=== PATIENT | male | born 1975 | race Caucasian/White ===

== ENCOUNTER 2021-01-21 11:08 | Emergency (ER) | payer MEDICAID ==
[~2021-01-21] VITALS: Ht 172.7 cm; Wt 81.8 kg
[2021-01-21 11:09] VITALS: BP 125/83
[2021-01-21 11:53] LABS: COLOR,URINE YELLOW (Yellow); UA COLLECTION TYPE OTHER
[2021-01-21 11:54] LABS: CLARITY,URINE CLOUDY (Clear); GLUCOSE, URINE NEGATIVE (Neg); KETONES,URINE NEGATIVE (Neg); NITRITES, URINE NEGATIVE (Neg); OCCULT BLOOD,URINE LARGE (Neg); PH,URINE 7.5 (4.8-8.0); PROTEIN,URINE NEGATIVE (Neg)
[2021-01-21 11:55] LABS: LEUKOCYTE ESTERASE ,URINE TRACE (Neg)
[2021-01-21 12:07] LABS: FINE GRANULAR CAST 0-3 /LPF (NEGATIVE)
[2021-01-21 12:08] LABS: MUCUS STRANDS MANY /LPF (Neg); SQUAMOUS EPITHELIAL CELL,UR NONE SEEN /LPF (FEW)
[2021-01-21 12:12] LABS: RBC,URINE TNTC /HPF (0-2); WBC,URINE 20-30 /HPF (0-4)
[2021-01-21 12:15] LABS: CAL OXALATE CRYSTALS 3+ /HPF (NEGATIVE); YEAST MODERATE /HPF (NEGATIVE)
[2021-01-21 12:17] LABS: BACTERIA,URINE 2+ /HPF (Neg)
[2021-01-21] MEDS ORDERED: sulfamethoxazole/trimethoprim DS (800/160mg) tablet PO ONE (12:35)
[2021-01-21] MEDS ORDERED: LIDOcaine 2% 10ml TOPICAL JELLY (Urojet) TP ONE (12:35)
[2021-01-21] MEDS ORDERED: HYDROcodone/acetaminophen 5mg/325mg tablet PO ONE (12:35)
[2021-01-21] MEDS ORDERED: ondansetron 4mg rapidly disintigrating tab PO ONE (12:35)
[2021-01-21] MEDS ORDERED: opium/belladonna alkaloids No. 15A 30mg rectal suppository RC PRN (14:35)
[2021-01-21] MEDS ORDERED: SULF1TAB45 PO (14:37)
[2021-01-21] MEDS ORDERED: OXYB5TAB16 PO (14:37)
== END 2021-01-21 15:21 | disposition home or self-care (01) ==
LOC: ER 11:08
DX: T83.9XXS Unspecified complication of genitourinary prosthetic device, implant and graft, sequela (principal); N39.0 Urinary tract infection, site not specified
CPT/HCPCS: 51702; 81001; 87077; 87088; 87186; 99284

== ENCOUNTER 2021-01-31 10:39 | Emergency (ER) | payer MEDICAID ==
[~2021-01-31] VITALS: Ht 172.7 cm; Wt 90.0 kg
[~2021-01-31 10:39] MED LIST: OXYB5TAB16 PO; SULF1TAB45 PO
[2021-01-31 11:00] VITALS: BP 113/59
== END 2021-01-31 11:06 | disposition home or self-care (01) ==
LOC: ER 10:40
DX: Z13.89 Encounter for screening for other disorder (principal); Z98.890 Other specified postprocedural states; Z79.2 Long term (current) use of antibiotics; Z79.899 Other long term (current) drug therapy
CPT/HCPCS: 99281

== ENCOUNTER → 2021-02-20 | Outpatient (CLI) | payer MEDICAID ==
[~2021-02-20] MED LIST changes: -SULF1TAB45 PO
== END | disposition home or self-care (01) ==
LOC: RAD 12:21
PROVIDERS: ATTEND Physician Assistant
DX: G40.909 Epilepsy, unspecified, not intractable, without status epilepticus (principal)
CPT/HCPCS: 95819

== ENCOUNTER 2021-04-24 05:16 | Emergency (ER) | payer MEDICAID ==
[~2021-04-24] VITALS: Ht 172.7 cm; Wt 90.9 kg
--- NOTE | 2021-04-24 05:45 | NUR ---
Pt was concerned about decreased urinary out put. Bladder scan revealed 117 ml
[2021-04-24] MEDS ORDERED: normal saline 1000ML IV soln IVB ONE (06:25)
[2021-04-24] MEDS ORDERED: methylnaltrexone br 12mg/0.6ml inj***SubQ only SQ ONE (06:25)
[2021-04-24] MEDS ORDERED: ketorolac trometh. 30mg/ml inj. IV ONE (06:25)
[2021-04-24] MEDS ORDERED: bisacodyl 5mg tablet.DR PO ONE (06:25)
[2021-04-24 07:45] VITALS: BP 113/87
[2021-04-24 07:54] LABS: BASOPHILS % (AUTO) 0.3 % (0-1); EOSINOPHILS % (AUTO) 0.4 % (0-6); HEMATOCRIT 35.2 % (42.0-52.0); HEMOGLOBIN 11.9 g/dl (14.0-17.9); LYMPHOCYTES % (AUTO) 11.8 % (21-51); MEAN CORPUSCULAR HEMOGLOBIN 31.1 PG (27.0-31.0); MEAN CORPUSCULAR HGB CONC 33.9 g/dL (33.0-36.5); MEAN CORPUSCULAR VOLUME 91.9 FL (78-98); MEAN PLATELET VOLUME 9.6 FL (7.4-10.4); MONOCYTES # (AUTO) 0.9 X10'3 (0-0.9); MONOCYTES % (AUTO) 9.9 % (2-12); NEUTROPHILS # (AUTO) 6.8 X10'3 (1.8-7.7); NEUTROPHILS % (AUTO) 77.6 % (42-75); RED BLOOD COUNT 3.83 X10'6 (4.70-6.10); RED CELL DISTRIBUTION WIDTH 16.4 % (11.5-14.5); WHITE BLOOD COUNT 8.8 X10'3 (4.5-11.0)
[2021-04-24 08:01] LABS: PLATELET COUNT 46 X10'3 (140-440)
[2021-04-24 08:02] LABS: ALANINE AMINOTRANSFERASE 24 U/L (12-78); ALBUMIN 2.4 G/DL (3.4-5.0); ALBUMIN/GLOBULIN RATIO 0.5 (1.1-1.5); ALKALINE PHOSPHATASE 108 IU/L (46-116); ANION GAP 11 (8-16); ASPARTATE AMINO TRANSFERASE 38 U/L (10-37); BILIRUBIN,TOTAL 1.1 MG/DL (0.1-1.0); BLOOD UREA NITROGEN 8 MG/DL (7-18); BUN/CREATININE RATIO 11.3 (5.4-32.0); CALCIUM 7.9 MG/DL (8.5-10.1); CHLORIDE 108 MMOL/L (99-107); CREATININE 0.71 MG/DL (0.60-1.10); MAGNESIUM 1.4 MG/DL (1.5-2.4); POTASSIUM 3.7 MMOL/L (3.5-5.1); SODIUM 139 MMOL/L (135-145); TOTAL CARBON DIOXIDE 20.2 MMOL/L (24-32); TOTAL PROTEIN 7.1 G/DL (6.4-8.2); eGFR > 90 ML/MIN
[2021-04-24 08:03] LABS: GLUCOSE 98 MG/DL (70-104)
[2021-04-24] MEDS ORDERED: orphenadrine citrate 60mg/2ml inj. IM ONE (08:25)
[2021-04-24] MEDS ORDERED: dicyclomine 10mg/ml 2ml ampule IM ONE (08:25)
[2021-04-24] MEDS ORDERED: magnesium citrate 296ml oral solution PO ONE (10:00)
[2021-04-24] MEDS ORDERED: BISA-78 PO (12:08)
[2021-04-24] MEDS ORDERED: MAGN296S68 PO (12:08)
== END 2021-04-24 13:15 | disposition home or self-care (01) ==
LOC: ER 05:16
DX: K59.00 Constipation, unspecified (principal); R10.84 Generalized abdominal pain; M54.9 Dorsalgia, unspecified; G89.29 Other chronic pain; J02.9 Acute pharyngitis, unspecified; R13.10 Dysphagia, unspecified; F17.200 Nicotine dependence, unspecified, uncomplicated
CPT/HCPCS: 36415; 74018; 80053; 83605; 83735; 85025; 87081; 87880; 96361; 96372; 96374; 99284; J0500; J1885; J2212; J2360; J7030

== ENCOUNTER 2021-10-28 20:33 | Emergency (ER) | payer MEDICAID ==
[~2021-10-28] VITALS: Ht 175.3 cm; Wt 95.5 kg
[~2021-10-28 20:33] MED LIST changes: +BISA-78 PO; +MAGN296S68 PO
[2021-10-28 21:19] LABS: ALANINE AMINOTRANSFERASE 247 U/L (12-78); ALBUMIN/GLOBULIN RATIO 0.6 (1.1-1.5); ALKALINE PHOSPHATASE 129 IU/L (46-116); ANION GAP 10 (8-16); ASPARTATE AMINO TRANSFERASE 228 U/L (10-37); BILIRUBIN,TOTAL 0.8 MG/DL (0.1-1.0); BLOOD UREA NITROGEN 5 MG/DL (7-18); BUN/CREATININE RATIO 6.4 (5.4-32.0); CHLORIDE 108 MMOL/L (99-107); CREATININE 0.78 MG/DL (0.60-1.10); SODIUM 141 MMOL/L (135-145); TOTAL CARBON DIOXIDE 23.2 MMOL/L (24-32); TOTAL PROTEIN 8.3 G/DL (6.4-8.2); eGFR > 90 ML/MIN
[2021-10-28 21:22] LABS: ETHANOL 0.316 GM/DL (0.0-0.010); GLUCOSE 118 MG/DL (70-104)
[2021-10-28 21:23] LABS: BASOPHILS # (AUTO) 0.1 X10'3 (0-0.2); BASOPHILS % (AUTO) 0.9 % (0-1); EOSINOPHILS # (AUTO) 0.1 X10'3 (0-0.9); EOSINOPHILS % (AUTO) 1.7 % (0-6); HEMOGLOBIN 13.7 g/dl (14.0-17.9); LYMPHOCYTES # (AUTO) 2.6 X10'3 (1.1-4.8); LYMPHOCYTES % (AUTO) 40.8 % (21-51); MEAN CORPUSCULAR HEMOGLOBIN 28.6 PG (27.0-31.0); MEAN CORPUSCULAR HGB CONC 33.4 g/dL (33.0-36.5); MEAN CORPUSCULAR VOLUME 85.8 FL (78-98); MEAN PLATELET VOLUME 9.1 FL (7.4-10.4); MONOCYTES # (AUTO) 0.6 X10'3 (0-0.9); NEUTROPHILS # (AUTO) 2.9 X10'3 (1.8-7.7); NEUTROPHILS % (AUTO) 46.6 % (42-75); PLATELET COUNT 76 X10'3 (140-440); RED BLOOD COUNT 4.78 X10'6 (4.70-6.10); RED CELL DISTRIBUTION WIDTH 20.2 % (11.5-14.5); WHITE BLOOD COUNT 6.3 X10'3 (4.5-11.0)
[2021-10-28 22:11] LABS: URINE AMPHETAMINE SCREEN NEGATIVE (Neg); URINE BARBITUATE SCREEN NEGATIVE (Neg); URINE BENZODIAZEPINES SCREEN NEGATIVE (Neg); URINE CANNABINOID SCREEN POSITIVE (Neg); URINE COCAINE SCREEN NEGATIVE (Neg); URINE METHADONE SCREEN NEGATIVE (Neg); URINE OPIATE SCREEN NEGATIVE (Neg); URINE PHENCYCLIDINE SCREEN NEGATIVE (Neg)
[2021-10-28] MEDS ORDERED: ketorolac trometh. 30mg/ml inj. IV ONE (22:20)
== END 2021-10-28 23:08 | disposition home or self-care (01) ==
LOC: ER 20:34
DX: R07.89 Other chest pain (principal); G89.29 Other chronic pain; Z88.0 Allergy status to penicillin
CPT/HCPCS: 36415; 71045; 80053; 80305; 80320; 83880; 84484; 85025; 85610; 93005; 96374; 99285; J1885

== ENCOUNTER 2022-11-01 22:24 | Emergency (ER) | payer MEDICAID ==
[~2022-11-01] VITALS: Ht 175.3 cm; Wt 86.4 kg
[2022-11-01 23:01] VITALS: TEMP 98.5
[2022-11-02] MEDS ORDERED: iohexol 300mg/ml 100ml inj. ONE (00:35)
[2022-11-02] MEDS ORDERED: OMEP20CA16 PO (01:11)
[2022-11-02] MEDS ORDERED: PREG50CA64 PO (01:11)
[2022-11-02] MEDS ORDERED: CARV3.1244 PO (01:11)
[2022-11-02] MEDS ORDERED: TENO25TA PO (01:11)
[2022-11-02] MEDS ORDERED: BACL10TA2 PO (01:11)
[2022-11-02] MEDS ORDERED: DOCU-391 PO (01:11)
[2022-11-02] MEDS ORDERED: HYDR-3972 PO (01:11)
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
[2022-11-02] MEDS ORDERED: bacitracin 15gm ointment TP ONE (02:15)
[2022-11-02] MEDS ORDERED: HYDROcodone/acetaminophen 10/325mg tab PO ONE (02:15)
[2022-11-02 02:17] VITALS: BP 149/94; PULSE 103; RESP 16; O2SAT 94
== END 2022-11-02 02:30 | disposition home or self-care (01) ==
LOC: ER 22:25
DX: S01.81XA Laceration without foreign body of other part of head, initial encounter (principal); S20.211A Contusion of right front wall of thorax, initial encounter; G89.29 Other chronic pain; Z72.89 Other problems related to lifestyle; Z88.0 Allergy status to penicillin; Z79.899 Other long term (current) drug therapy; Z79.2 Long term (current) use of antibiotics; Y04.8XXA Assault by other bodily force, initial encounter; Y93.89 Activity, other specified; Y92.89 Other specified places as the place of occurrence of the external cause; Y99.8 Other external cause status
CPT/HCPCS: 36415; 70450; 71260; 72125; 74177; 84484; 99285; J3490; Q9967